=== PATIENT | female | born 1985 | race African-American/Black ===

== ENCOUNTER 2020-03-02 19:07 | Emergency (ER) | payer BC, OTHER ==
[~2020-03-02] VITALS: Ht 172.7 cm; Wt 115.1 kg
[2020-03-02 19:31] VITALS: BP 128/80
[2020-03-02] MEDS ORDERED: AZIT250T6 PO (20:35)
--- NOTE | 2020-03-02 20:36 | PHYS DOC ---
Past Medical History Past Medical History: No Pertinent History Past Surgical History: Other Additional Past Surgical Histo: RIGHT WRIST Smoking Status: Never Smoker Alcohol Use: None General Adult EDM: Chief Complaint: HEADACHE HPI: HPI: Patient is a 34 year old female who presents with a migraine headache that started yesterday that she states bilateral temples and goes across her forehead. States it feels like just like her migraines. She is she is a little nausea and a little light sensitivity but this is how her migraines usually are. She states a long time ago meaning years that she was placed on some migraine medication but it never worked. She states that when this happens she takes caffeine and Excedrin Migraine usually helps. She states at 1345 she took some naproxen and did help. She states that the pain is starting to come back. She states that she also has nasal drainage and her head feels very tight like a sinus infection. States is been going on for the last week. Patient rates her pain is 6 out of 10. Review of Systems: Review of Systems: HENT: nasal congestion or denies sore throat. [] Integument: Denies rash. [] Neurologic: headache, denies focal weakness or sensory changes. [] Heart Score: Risk Factors: Risk Factors: DM, Current or recent (<one month) smoker, HTN, HLP, family history of CAD, obesity. Risk Scores: Score 0 - 3: 2.5% MACE over next 6 weeks - Discharge Home Score 4 - 6: 20.3% MACE over next 6 weeks - Admit for Clinical Observation Score 7 - 10: 72.7% MACE over next 6 weeks - Early Invasive Strategies Allergies: Allergies: Allergies Coded Allergies Type Severity Reaction Last Updated Verified No Known Drug Allergies 03/02/20 No Physical Exam: PE: Constitutional: Well developed, well nourished, no acute distress, non-toxic appearance. [] HENT: Normocephalic, atraumatic, bilateral external ears normal, oropharynx moist, no oral exudates, nose normal. [] Eyes: PERRLA, EOMI, conjunctiva normal, no discharge. [] Neck: Normal range of motion, no tenderness, supple, no stridor. [] Cardiovascular:Heart rate regular rhythm, no murmur [] Lungs & Thorax: Bilateral breath sounds clear to auscultation [] Abdomen: Bowel sounds normal, soft, no tenderness, no masses, no pulsatile masses. [] Skin: Warm, dry, no erythema, no rash. [] Back: No tenderness, no CVA tenderness. [] Extremities: No tenderness, no cyanosis, no clubbing, ROM intact, no edema. [] Neurologic: Alert and oriented X 3, normal motor function, normal sensory function, no focal deficits noted. [] Psychologic: Affect normal, judgement normal, mood normal. [] Normal physical exam Current Patient Data: Labs: Laboratory Tests Test 03/02/20 19:47 POC Urine HCG, Qualitative Hcg negative (Negative) Vital Signs: Vital Signs Date Time Temp Pulse Resp B/P (MAP) Pulse Ox O2 Delivery O2 Flow Rate FiO2 03/02/20 19:31 98.5 64 18 128/80 (96) 100 Room Air 98.5 EKG: EKG: [] Radiology/Procedures: Radiology/Procedures: [] Course & Med Decision Making: Course & Med Decision Making Pertinent Labs and Imaging studies reviewed. (See chart for details) Alert and oriented. Speaks in full clear sentences. PERRLA. No nystagmus. Skin pink warm and dry. Ambulatory with a steady gait. Patient denies , numbness or tingling, chest pain, shortness of air, fever, neck pain, back pain, dizziness, syncope, vomiting, abdominal pain, numbness or tingling, focal weakness. I will Give the patient azithromycin. She will receive Compazine, Benadryl, Toradol in the ED. Patient is stable and in no distress. [] Jemon Disclaimer: Eliseo Disclaimer: This electronic medical record was generated, in whole or in part, using a voice recognition dictation system. Departure Departure Impression: Primary Impression: Headache Qualified Codes: R51 - Headache Additional Impression: Sinusitis Qualified Codes: J01.10 - Acute frontal sinusitis, unspecified Disposition: 01 HOME, SELF-CARE Condition: STABLE Patient Instructions: Migraine Headache, Sinusitis Additional Instructions: Remember if you began having a increased cough and shortness of air or chest pain and fever return to the emergency room. Take medication as prescribed and with food. Follow-up with a primary care provider for your headaches. Scripts Azithromycin (AZITHROMYCIN TABLET) 250 Mg Tablet 1 PKG PO UD for 5 Days, #6 TAB 0 Refills 2 the first day followed by 1 for days 2-5 Prov: ELADIO SCHWARZ APRN 03/02/20 Justicifation of Admission Dx: Justifications for Admission: Justification of Admission Dx: N/A ELADIO SCHWARZ APRN Mar 02, 2020 20:36
[2020-03-02] MEDS ORDERED: KETOROLAC 60 MG/2 ML VIAL. ONE (20:43)
[2020-03-02] MEDS ORDERED: diphenhydrAMINE 50 MG/ML VIAL IM ONE (20:45)
[2020-03-02] MEDS ORDERED: PROCHLORPERAZINE 10 MG/2 ML VIAL. IM ONE (20:45)
[2020-03-02] MEDS ORDERED: KETOROLAC 60 MG/2 ML VIAL. IM ONE (20:45)
== END 2020-03-02 20:55 | disposition home or self-care (01) ==
LOC: ER 19:07
DX: G43.909 Migraine, unspecified, not intractable, without status migrainosus (principal); J01.10 Acute frontal sinusitis, unspecified
CPT/HCPCS: 81025; 96372; 99284; J0780; J1200; J1885